=== PATIENT | male | born 1980 | race African-American/Black ===

== ENCOUNTER 2022-01-19 06:21 | Emergency (ER) | payer SELFPAY ==
[2022-01-19] MEDS ORDERED: predniSONE 20 MG TAB ONE (06:37)
[2022-01-19] MEDS ORDERED: diphenhydrAMINE 25 MG CAP ONE (06:37)
[2022-01-19] MEDS ORDERED: Famotidine 20 MG TAB ONE (06:38)
== END 2022-01-19 07:20 | disposition home or self-care (01) ==
LOC: CSHERS 06:21
DX: L50.0 Allergic urticaria (principal); F17.210 Nicotine dependence, cigarettes, uncomplicated
CPT/HCPCS: 99283; J7512